=== PATIENT | female | born 1980 | race African-American/Black ===

== ENCOUNTER 2017-05-30 15:13 | Emergency (ER) | payer MEDICAID ==
[~2017-05-30] VITALS: Ht 165.1 cm; Wt 105.0 kg
[~2017-05-30 15:13] MED LIST: ALBU8I INH; AZIT250T43 PO; PROM6.257 PO; ZOFR4TAB3 SL
[2017-05-30 15:26] VITALS: BP 149/60; PULSE 108; RESP 15; TEMP 101.2; O2SAT 100
[2017-05-30] MEDS: RESP: ALBUTEROL 2.5 MG/IPRATROPIUM 0.5 MG NEB (SCH) INH ×3 (15:55→16:10)
[2017-05-30] MEDS ORDERED: MEDR4PAK PO (15:58)
[2017-05-30] MEDS ORDERED: VENTAER INH (15:58)
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
[2017-05-30] MEDS ORDERED: SODIUM CHLOR 0.9% 1000 ML INJ 1,000 ML IV ONE (16:00)
[2017-05-30] MEDS ORDERED: methylPREDNISolone SOD SUCC 125 MG/2 ML VIAL IV PUSH ONE (16:00)
[2017-05-30] MEDS ORDERED: ACETAMINOPHEN 325 MG TAB PO ONE (16:00)
--- NOTE | 2017-05-30 16:14 | RADRPT ---
EXAM DATE/TIME: 05/30/2017 15:59 [facility] COMPARISON: CHEST PA & LAT, June 09, 2015, 21:08. INDICATIONS : Cough and cold symptoms for two weeks. MEDICAL HISTORY : None. SURGICAL HISTORY : None. ENCOUNTER: Initial ACUITY: 2 weeks PAIN SCORE: 0/10 LOCATION: Bilateral chest FINDINGS: A single view of the chest demonstrates the lungs to be symmetrically aerated without evidence of mas s, infiltrate or effusion. The cardiomediastinal contours are unremarkable. Osseous structures are intact. CONCLUSION: Normal examination. Leonard Diehl MD on May 30, 2017 at 16:12 Board Certified Radiologist. This report was verified electronically.
[2017-05-30 16:23] VITALS: RESP 16; O2SAT 99
[2017-05-30 16:26] LABS: AUTOMATED NEUTROPHIL # 4.1 TH/MM3 (1.8-7.7); BASOPHIL % 0.5 % (0.0-2.0); EOSINOPHIL % 0.8 % (0.0-4.0); HEMATOCRIT 27.3 % (35.0-46.0); HEMOGLOBIN 8.4 GM/DL (11.6-15.3); LYMPH % 16.1 % (9.0-44.0); MEAN CELL VOLUME 68.8 FL (80.0-100.0); MEAN CORPUSCULAR HEMOGLOBIN 21.3 PG (27.0-34.0); MEAN CORPUSCULAR HGB CONC 30.9 % (32.0-36.0); MEAN PLATELET VOLUME 7.8 FL (7.0-11.0); MONO % 13.4 % (0.0-8.0); MONOCYTE # 0.8 TH/MM3 (0-0.9); NEUT % 69.2 % (16.0-70.0); PLATELET COUNT 278 TH/MM3 (150-450); RED BLOOD COUNT 3.96 MIL/MM3 (4.00-5.30); RED CELL DISTRIBUTION WIDTH 18.1 % (11.6-17.2); WHITE BLOOD COUNT 5.9 TH/MM3 (4.0-11.0)
[2017-05-30 16:47] LABS: BICARBONATE 25.3 MEQ/L (21.0-32.0); CALCIUM 8.4 MG/DL (8.5-10.1); CREATININE 0.75 MG/DL (0.50-1.00)
[2017-05-30 17:36] VITALS: BP 118/80; PULSE 112; RESP 16; TEMP 100.1; O2SAT 99
--- NOTE | 2017-05-30 18:15 | PD ---
Physical Exam Narrative I, Dr. Rico, have reviewed the advance practice practitioner's documentation and am in agreement, met with the patient face to face, made the diagnosis, and the medical decision making was done by me. *My assessment and Findings: Asthma exacerbation vs. URI vs. pneumonia 36yo F with asthma, sickle cell trait, anemia here with cough and sob. Pt does not have any asthma medication. Pt is febrile at 101.2. Labs reviewed, no leukocytosis. H/H low at 8.4/27.3. Pt denies any GI bleed and said it is always low. BMP unremarkable. Influenza and group A strep negative. CXR negative. Pt given methylprednisolone and duonebs x3 as well as acetaminophen and NS IVF. Pt reevaluated at bedside and feels better. No longer sob. Wants to go home. Temp improve to 100.1F. Return precautions given. Data Data Last Documented VS Vital Signs Date Time Temp Pulse Resp B/P (MAP) Pulse Ox O2 Delivery O2 Flow Rate FiO2 05/30/17 17:36 100.1 112 16 118/80 (93) 99 Room Air Orders Orders Complete Blood Count With Diff (05/30/17 15:53) Basic Metabolic Panel (Bmp) (05/30/17 15:53) Influenzae A/B Antigen (05/30/17 15:53) Oximetry (05/30/17 15:53) Chest, Single Ap (05/30/17 15:53) Methylprednisolone So Succ Inj (Solumedr (05/30/17 16:00) Albuterol-Ipratropium Neb (Duoneb Neb) (05/30/17 16:00) Acetaminophen (Tylenol) (05/30/17 16:00) Sodium Chlor 0.9% 1000 Ml Inj (Ns 1000 M (05/30/17 16:00) Group A Rapid Strep Screen (05/30/17 15:53) Strep Culture (Group A) (05/30/17 16:00) Labs Laboratory Tests Test 05/30/17 16:00 White Blood Count 5.9 TH/MM3 Red Blood Count 3.96 MIL/MM3 Hemoglobin 8.4 GM/DL Hematocrit 27.3 % Mean Corpuscular Volume 68.8 FL Mean Corpuscular Hemoglobin 21.3 PG Mean Corpuscular Hemoglobin Concent 30.9 % Red Cell Distribution Width 18.1 % Platelet Count 278 TH/MM3 Mean Platelet Volume 7.8 FL Neutrophils (%) (Auto) 69.2 % Lymphocytes (%) (Auto) 16.1 % Monocytes (%) (Auto) 13.4 % Eosinophils (%) (Auto) 0.8 % Basophils (%) (Auto) 0.5 % Neutrophils # (Auto) 4.1 TH/MM3 Lymphocytes # (Auto) 1.0 TH/MM3 Monocytes # (Auto) 0.8 TH/MM3 Eosinophils # (Auto) 0.0 TH/MM3 Basophils # (Auto) 0.0 TH/MM3 CBC Comment DIFF FINAL Differential Comment Blood Urea Nitrogen 12 MG/DL Creatinine 0.75 MG/DL Random Glucose 85 MG/DL Calcium Level 8.4 MG/DL Sodium Level 136 MEQ/L Potassium Level 3.9 MEQ/L Chloride Level 106 MEQ/L Carbon Dioxide Level 25.3 MEQ/L Anion Gap 5 MEQ/L Estimat Glomerular Filtration Rate 107 ML/MIN MDM Supervised Visit with [facility]EXI: Yes Diagnosis Primary Impression: Asthma exacerbation Qualified Codes: J45.901 - Unspecified asthma with (acute) exacerbation Additional Impression: Anemia Qualified Codes: N18.9 - Chronic kidney disease, unspecified; D63.1 - Anemia in chronic kidney disease Referrals: Primary Care Physician Patient Instructions: General Instructions, Asthma (ED), Anemia (ED) Departure Forms: Tests/Procedures Additional Instruction: Follow-up with her primary care physician this week. Take all medications as prescribed. If your symptoms persist or worsen return to the emergency department. Scripts Methylprednisolone Dosepak (Medrol Dosepak) 4 Mg Dspk 4 MG PO DIRECTED, #1 DSPK 0 Refills Per Pharmacist direction Prov: Casie Armenta 05/30/17 Albuterol 18 GM Inh (Ventolin Hfa 18 GM Inh) 90 Mcg/Act Aer 2 PUFF INH Q4-6H Y for SHORTNESS OF BREATH, #1 INHALER 0 Refills Prov: Casie Armenta 05/30/17 Disposition: 01 DISCHARGE HOME Condition: Stable Pardaise Rico DO May 30, 2017 18:15
== END 2017-05-30 18:54 | disposition home or self-care (01) ==
LOC: NEPC 15:13
DX: J45.901 Unspecified asthma with (acute) exacerbation (principal); N18.9 Chronic kidney disease, unspecified; D63.1 Anemia in chronic kidney disease
CPT/HCPCS: 71045; 80048; 85025; 87081; 87804; 87880; 94640; 94664; 96361; 96374; 99284; J2930; J7030

== ENCOUNTER 2017-06-21 16:27 | Emergency (ER) | payer OTHER, MEDICAID ==
[~2017-06-21 16:27] MED LIST changes: -ALBU8I INH; -AZIT250T43 PO; +MEDR4PAK PO; -PROM6.257 PO; +VENTAER INH; -ZOFR4TAB3 SL
[2017-06-21 16:46] VITALS: BP 142/75; PULSE 102; RESP 18; TEMP 98.4; O2SAT 99
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
[2017-06-21] MEDS ORDERED: KETOROLAC TROMETHAMINE 60 MG/2 ML (IM) VIAL IM ONE (18:30)
[2017-06-21] MEDS ORDERED: ORPHENADRINE INJ 60 MG/2 ML AMP IM ONE (18:30)
[2017-06-21] MEDS ORDERED: ROBA750T PO (18:39)
[2017-06-21] MEDS ORDERED: IBUP1TAB7 PO (18:39)
== END 2017-06-21 19:00 | disposition home or self-care (01) ==
LOC: NED 16:27 → NEPK 19:00
DX: S16.1XXA Strain of muscle, fascia and tendon at neck level, initial encounter (principal); S39.012A Strain of muscle, fascia and tendon of lower back, initial encounter; V43.52XA Car driver injured in collision with other type car in traffic accident, initial encounter
CPT/HCPCS: 96372; 99284; J1885; J2360